=== PATIENT | female | born 1980 | race Caucasian/White ===

== ENCOUNTER 2021-10-25 09:22 | Day surgery (SDC) | payer OTHER, SELFPAY ==
[2021-10-24 15:52] LABS: ALBUMIN 3.4 g/dL (3.4-4.8); CALCIUM 8.2 mg/dL (8.4-11.0); CREATININE 0.65 mg/dL (0.55-1.30); HEMOGLOBIN 10.7 g/dL (12.0-16.0); PLATELET COUNT (AUTO) 291 K/uL (130-430); POTASSIUM 3.9 mmol/L (3.5-5.1)
[2021-10-24 15:59] LABS: BASOPHILS # (AUTO) 0.1 K/uL (0.0-0.2); BASOPHILS % (AUTO) 0.7 % (0.0-2.0); EOSINOPHILS # (AUTO) 0.2 K/uL (0.0-0.4); EOSINOPHILS % (AUTO) 1.7 % (0.0-4.0); LYMPHOCYTES # (AUTO) 3.2 K/uL (1.0-5.5); LYMPHOCYTES % (AUTO) 36.3 % (20.5-51.5); MEAN CORPUSCULAR HEMOGLOBIN 25 pg (27-31); MEAN CORPUSCULAR HGB CONC 33 % (32-36); MEAN CORPUSCULAR VOLUME 75 fL (79.0-98.0); MONOCYTES # (AUTO) 0.5 K/uL (0.0-1.0); MONOCYTES % (AUTO) 5.5 % (1.7-9.3); NEUTROPHILS # (AUTO) 4.9 K/uL (1.8-7.7); NEUTROPHILS % (AUTO) 55.8 % (40.0-70.0); RED BLOOD CELL COUNT(AUTO) 4.38 MIL/uL (4.2-6.2); RED CELL DISTRIBUTION WIDTH 15.2 % (9.0-15.0); WHITE BLOOD COUNT (AUTO) 8.8 K/uL (4.8-10.8)
[2021-10-24 16:04] LABS: TOTAL BILIRUBIN 0.1 mg/dL (0.0-1.0)
[2021-10-25] VITALS (8 sets, daily range): BP systolic 97–112
[~2021-10-25] VITALS: Ht 160 cm; Wt 75.7 kg
[2021-10-25] MEDS ORDERED: PROPOFOL 200MG/ 20ML VIAL (DIPRIVAN) IV ONE (12:24)
[2021-10-25] MEDS ORDERED: ROCURONIUM BROMIDE 10 MG/ML (ZEMURON) ONE (12:24)
[2021-10-25] MEDS ORDERED: ONDANSETRON HCL 4 MG/2 ML VIAL ONE (12:24)
[2021-10-25] MEDS ORDERED: MIDAZOLAM HCL 5 MG/5 ML VIAL ONE (12:24)
[2021-10-25] MEDS ORDERED: NS IRRIG SOLN 1000 ML IR ONE (12:24)
[2021-10-25] MEDS ORDERED: SUCCINYLCHOLINE CHLORIDE 20 MG/ML(QUELICIN) ONE (12:24)
[2021-10-25] MEDS ORDERED: KETOROLAC TROMETHAMINE 30 MG VIAL ONE (12:24)
[2021-10-25] MEDS ORDERED: METOCLOPRAMIDE HCL 10 MG/2 ML VIAL ONE (12:24)
[2021-10-25] MEDS ORDERED: SEVOFLURANE 15 MIN GAS INH ONE (12:24)
[2021-10-25] MEDS ORDERED: fentaNYL CITRATE/PF 100 MCG/2 ML AMP ONE (12:24)
[2021-10-25] MEDS ORDERED: NEOSTIGMINE METHYLSULFATE 1 MG/ML, 10 ML VIAL ONE (12:24)
[2021-10-25] MEDS ORDERED: NS 100 ML BAG ONE (12:24)
[2021-10-25] MEDS ORDERED: KETAMINE HCL 500 MG/10 ML VIAL ONE (12:24)
[2021-10-25] MEDS ORDERED: MEPERIDINE 50 MG/ML VIAL ONE (12:24)
[2021-10-25] MEDS ORDERED: GLYCOPYRROLATE 0.2 MG/ML VIAL ONE (12:24)
[2021-10-25] MEDS ORDERED: LR 1,000 ML IV.SOLN IV ONE (12:24)
[2021-10-25] MEDS ORDERED: DEXAMETHASONE SOD PHOSPHATE 4 MG/ML VIAL ONE (12:24)
[2021-10-25] MEDS ORDERED: SIMETHICONE 80 MG TAB.CHEW PO PRN (12:45)
[2021-10-25] MEDS ORDERED: IBUPROFEN 800 MG TABLET PO PRN (12:45)
[2021-10-25] MEDS ORDERED: OXYCODONE/ACETAMINOPHEN 5-325 TABLET PO PRN ×2 (12:45)
[2021-10-25] MEDS ORDERED: ONDANSETRON HCL 4 MG/2 ML VIAL IVP PRN (12:45)
--- NOTE | 2021-10-25 15:30 | NUR ---
Pt arrived to [facility] Room 117A from [place] Post Op Total Hysterectomy. Pt A+Ox4. Only syrian speaking. Pt c/o 02/24 abd pain- see eMAR. IV noted to L AC- 20g infusing IVF. CSMW satisfactory. No headache, chest pain, N+T or edema. SCDs in place. Pt c/o dizziness. Lungs clear. No SOB/cough. RA 99%. BS x4- hypoactive. no distension noted. LBM 10/24/21. void via hernandez. no N+V. 4 abd incisions noted- covered with bandages- shadowing. No rash/itchiness. VSS. Will continue to monitor.
[2021-10-25] MEDS: LR 1,000 ML IV SCH (16:00)
[2021-10-25] MEDS: KETOROLAC TROMETHAMINE 30 MG VIAL IVP PRN (16:13)
--- NOTE | 2021-10-25 18:10 | NUR ---
Pt sitting up in bed eating dinner. IVF infusing. No voiced concerns. Call verma in reach. Will continue to monitor.
[2021-10-25] MEDS: HYDROmorphone 2 MG/ML VIAL IVP PRN (18:59)
--- NOTE | 2021-10-25 19:15 | NUR ---
OPENING NOTES RECEIVED PATIENT RESTING IN BED, FAMILY AT BEDSIDE. NO SIGNS OF DISTRESS NOTED. CALL LIGHT WITHIN REACH, BED ALARM ON, BED AT LOWEST POSITION, BED LOCKED. PATIENT DEMONSTRATES BACK PROPER USAGE OF CALL LIGHT. FALL, RESPIRATORY, SAFETY AND ASPIRATION PRECAUTIONS IN PLACE. DISCUSSED PLAN OF CARE WITH PATIENT. WILL CONTINUE TO MONITOR.
[2021-10-25] MEDS ORDERED: TEMAZEPAM 15 MG CAPSULE PO PRN (21:00)
[2021-10-25] MEDS: DOCUSATE SODIUM 100 MG CAPSULE PO SCH (21:32)
--- NOTE | 2021-10-25 22:30 | NUR ---
BRAR CATHETER DISCONTINUED, PATIENT HAS NO COMPLAINTS AT THIS TIME. WILL CONTINUE TO MONITOR.
[2021-10-26] MEDS: LR 1,000 ML IV SCH ×2 (00:23→04:45)
[2021-10-26 00:47] VITALS: BP_SYST 101
--- NOTE | 2021-10-26 02:10 | NUR ---
PATIENT AMBULATES TO THE RESTROOM WITH ASSIST. WARM BLANKETS PROVIDED TO THE PATIENT. WILL CONTINUE TO MONITOR.
[2021-10-26 05:50] VITALS: BP_SYST 114
[2021-10-26] MEDS: HYDROmorphone 2 MG/ML VIAL IVP PRN (05:50)
--- NOTE | 2021-10-26 06:56 | NUR ---
CLOSING NOTES PATIENT RESTING IN BED, NO SIGNS OF PAIN OR DISTRESS NOTED. CALL LIGHT WITHIN REACH, BED ALARM ON, BED AT LOWEST POSITION, BED LOCKED. FALL, RESPIRATORY, SAFETY AND ASPIRATION PRECAUTIONS IN PLACE THROUGHOUT SHIFT. PATIENT AMBULATED WITH ASSIST WHEN GOING TO RESTROOM. ALL NEEDS MET THROUGHOUT SHIFT. WILL ENDORSE CARE TO ONCOMING SHIFT.
[2021-10-26] MEDS: DOCUSATE SODIUM 100 MG CAPSULE PO SCH (07:54)
[2021-10-26] MEDS: KETOROLAC TROMETHAMINE 30 MG VIAL IVP PRN (07:54)
[2021-10-26 09:00] VITALS: BP_SYST 103
--- NOTE | 2021-10-26 10:38 | NUR ---
Pt resting in bed. Pt A+Ox4. Only burkinan speaking- pts daughter in room to translate. Pt c/o 12/25 abd pain- see eMAR. IV noted to L AC- 20g infusing IVF. CSMW satisfactory. No headache, dizziness, chest pain, N+T or edema. SCDs in place. Lungs clear. No SOB/cough. RA 98%. BS x4. no distension noted. LBM 10/24/21. void QS post hernandez removal. no N+V. 4 abd incisions noted- covered with bandages- shadowing. No rash/itchiness. VSS. Will continue to monitor.
[2021-10-26 10:42] VITALS: BP_SYST 103
--- NOTE | 2021-10-26 11:10 | NUR ---
Pt discharged per orders. DC docs reviewed. IV removed. All questions answered. Pt aware to pickup prescription at pharmacy and make follow up apt in 2 weeks. All belongings taken home with pt. No home meds to return. Pt wheeled out to front in wheelchair.
== END 2021-10-26 11:10 | disposition home or self-care (01) ==
LOC: SDS 09:22 → SMU 09:23 → SDS 10-26 11:10
PROVIDERS: ATTEND Obstetrics & Gynecology
DX: N81.4 Uterovaginal prolapse, unspecified (principal); N72 Inflammatory disease of cervix uteri; Z79.899 Other long term (current) drug therapy
CPT/HCPCS: 36415 ×3; 58570; 80053; 85025; 86886; 86900; 86901; 87081; 87426 ×2; 88307; C1727; J0330; J1100; J1170 ×2; J1885 ×2; J2175; J2250; J2405; J2704; J2710; J2765; J3010; J3490; J7120; S2900; E0190